=== PATIENT | female | born 1995 | race Caucasian/White ===

== ENCOUNTER 2016-12-26 05:41 | Day surgery (SDC) | payer OTHER, MEDICAID ==
[~2016-12-26] VITALS: Ht 152.4 cm; Wt 50.0 kg
[~2016-12-26 05:41] MED LIST: CHILDREN'S160 MG/53; NO HOME MEDS
[2016-12-26 06:20] VITALS: BP 110/67; PULSE 94; TEMP 99.2
[2016-12-26] MEDS ORDERED: ATIVAN2 MG PO (06:43)
[2016-12-26] MEDS ORDERED: PHENERGAN1.25 MG/ML PO (06:45)
[2016-12-26] MEDS ORDERED: PEPCID40 MG (06:47)
[2016-12-26 10:00] VITALS: PULSE 115; TEMP 98.5
[2016-12-26 10:15] VITALS: PULSE 107
[2016-12-26 10:28] VITALS: TEMP 98.1
[2016-12-26 10:30] VITALS: PULSE 115
== END 2016-12-26 10:40 | disposition home or self-care (01) ==
LOC: SDCO 05:41
DX: K01.1 Impacted teeth (principal); F42.9 Obsessive-compulsive disorder, unspecified; Q87.1 Congenital malformation syndromes predominantly associated with short stature; R56.9 Unspecified convulsions; F79 Unspecified intellectual disabilities
CPT/HCPCS: J0330; J1100; J2250; J2405; J2704; J3010; J7120